=== PATIENT | male | born 1990 | race Caucasian/White ===

== ENCOUNTER 2017-06-16 17:34 | Emergency (ER) | payer BC, OTHER ==
[~2017-06-16] VITALS: Ht 172.7 cm; Wt 93.3 kg
[2017-06-16 17:39] VITALS: Ht 172.7 cm; Wt 93.3 kg
[2017-06-16] MEDS ORDERED: CEFTRIAXONE SOD INJ 1 GM ADDVIAL IV STA (17:51)
[2017-06-16 18:19] LABS: BASO % 0.2 %; BASO ABS # 0.02 K/uL (0-0.2); EOS ABS # 0.21 K/uL (0-0.5); HEMATOCRIT 40.3 % (42-52); HEMOGLOBIN 14.6 g/dL (14.0-18.0); IG# 0.02 K/uL (0.00-0.02); LYMPH % 20.7 %; LYMPH ABS # 2.22 K/uL (1.2-3.4); MEAN CELL VOLUME 84.5 fL (80-100); MEAN CORPUSCULAR HEMOGLOBIN 30.6 pg (25-34); MEAN CORPUSCULAR HGB CONC 36.2 g/dl (32-36); MONO % 7.9 %; MONO ABS # 0.85 K/uL (0.11-0.59); NEUT ABS # 7.43 K/uL (1.4-6.5); PLATELET COUNT 260 K/uL (130-400); RED CELL DISTRIBUTION WIDTH CV 12.4 % (11.5-14.5); WHITE BLOOD COUNT 10.75 K/uL (4.8-10.8)
[2017-06-16 18:43] LABS: CALCIUM 9.1 mg/dl (8.5-10.1); CREATININE 0.96 mg/dl (0.60-1.40); POTASSIUM 3.3 mmol/L (3.5-5.1)
[2017-06-16] MEDS ORDERED: SEPTRA DS HOME PACK 1 EA VIAL PO ONE (19:15)
[2017-06-16] MEDS ORDERED: CEPHALEXIN 500MG HOME PACK 1 EA BTL PO ONE (19:15)
[2017-06-16] MEDS ORDERED: SULF800T23 PO (19:24)
[2017-06-16] MEDS ORDERED: CEPH500C PO (19:24)
--- NOTE | 2017-06-16 19:25 | EMERGENCY ROOM VISIT NOTE ---
History First contact with patient: 17:43 Chief Complaint: FINGER PAIN Stated Complaint: INFECTED FINGER History of Present Illness The patient is a 27 year old male who presents to the Emergency Room with complaints of an infection of his left arm and finger. The patient states that he recently got 3 new tattoos a few weeks ago. He states that 2 days ago, he noticed some bumps on his left arm and hand. He states that today, there was redness and swelling surrounding a few of the bumps. He reports redness and swelling of the left hand and parts of the third and fourth fingers. He denies difficulty moving the hand or fevers. He states it is slightly painful. He describes the pain is dull and rates the discomfort a 2/10. Review of Systems A complete 10 point review of systems was reviewed with the patient with pertinent positives and negatives as per history of present illness. All else were negative. Past Medical/Surgical History Medical Problems: (1) Heroin overdose (2) Narcotic overdose Social History Smoking Status: Current Every Day Smoker Alcohol Use: occasionally Drug Use: heroin, marijuana Marital Status: single Occupation Status: employed Current/Historical Medications Scheduled Cephalexin Monohydrate (Keflex), 500 MG PO QID Sulfa/Trimethoprim (Bactrim Ds 800MG/160MG), 1 TAB PO BID Physical Exam Vital Signs Date Time Temp Pulse Resp B/P (MAP) Pulse Ox O2 Delivery O2 Flow Rate FiO2 06/16/17 19:35 37.4 74 18 148/83 98 06/16/17 18:49 79 18 140/71 99 Room Air 06/16/17 17:39 36.7 96 20 153/89 98 Room Air Physical Exam VITALS: Vitals are noted on the nurse's note and reviewed by myself. Vital signs stable. GENERAL: This is a 27-year-old male, in no acute distress, nondiaphoretic, well- developed well-nourished. SKIN: There is a small area of erythema and induration measuring 1.5 cm in diameter to the left dorsal proximal forearm. No drainage from this area. There is erythema to the dorsal aspect of the left hand over the lateral aspect of the hand and extending part way up the left third and fourth digits, not past the PIPs. There is a small vesicular lesion to the left fourth finger with some serous drainage. There is no palpable fluctuance. HEART: Regular rate and rhythm without murmurs gallops or rubs. LUNGS: Clear to auscultation bilaterally without wheezes, rales or rhonchi. MUSCULOSKELETAL: Full range of motion of the left hand and all fingers. NEURO: Patient was alert and oriented to person place and time. Distal sensation intact. Medical Decision & Procedures Laboratory Results 06/16/17 18:00 Red Blood Count 4.77, Mean Corpuscular Volume 84.5, Mean Corpuscular Hemoglobin 30.6, Mean Corpuscular Hemoglobin Concent 36.2, Mean Platelet Volume 9.0, Neutrophils (%) (Auto) 69.0, Lymphocytes (%) (Auto) 20.7, Monocytes (%) (Auto) 7.9, Eosinophils (%) (Auto) 2.0, Basophils (%) (Auto) 0.2, Neutrophils # (Auto) 7.43, Lymphocytes # (Auto) 2.22, Monocytes # (Auto) 0.85, Eosinophils # (Auto) 0.21, Basophils # (Auto) 0.02 06/16/17 18:00 Test 06/16/17 18:00 White Blood Count 10.75 K/uL (4.8-10.8) Red Blood Count 4.77 M/uL (4.7-6.1) Hemoglobin 14.6 g/dL (14.0-18.0) Hematocrit 40.3 % (42-52) Mean Corpuscular Volume 84.5 fL (80-100) Mean Corpuscular Hemoglobin 30.6 pg (25-34) Mean Corpuscular Hemoglobin Concent 36.2 g/dl (32-36) Platelet Count 260 K/uL (130-400) Mean Platelet Volume 9.0 fL (7.4-10.4) Neutrophils (%) (Auto) 69.0 % Lymphocytes (%) (Auto) 20.7 % Monocytes (%) (Auto) 7.9 % Eosinophils (%) (Auto) 2.0 % Basophils (%) (Auto) 0.2 % Neutrophils # (Auto) 7.43 K/uL (1.4-6.5) Lymphocytes # (Auto) 2.22 K/uL (1.2-3.4) Monocytes # (Auto) 0.85 K/uL (0.11-0.59) Eosinophils # (Auto) 0.21 K/uL (0-0.5) Basophils # (Auto) 0.02 K/uL (0-0.2) RDW Standard Deviation 38.0 fL (36.4-46.3) RDW Coefficient of Variation 12.4 % (11.5-14.5) Immature Granulocyte % (Auto) 0.2 % Immature Granulocyte # (Auto) 0.02 K/uL (0.00-0.02) Anion Gap 5.0 mmol/L (3-11) Est Creatinine Clear Calc Drug Dose 129.2 ml/min Estimated GFR () 125.9 Estimated GFR (Non- 108.7 BUN/Creatinine Ratio 11.8 (10-20) Calcium Level 9.1 mg/dl (8.5-10.1) Medications Administered Medications (Trade) Dose Ordered Sig/Rd Route Start Time Stop Time Status Last Admin Dose Admin Ceftriaxone Sodium (Rocephin Inj) 1 gm NOW STAT IV 06/16/17 17:51 06/16/17 17:52 DC 06/16/17 18:05 1 GM Cephalexin Monohydrate (Keflex 500MG Home Pack) 1 homepack NOW ONCE PO 06/16/17 19:15 06/16/17 19:20 DC 06/16/17 19:33 1 HOMEPACK Trimethoprim/ Sulfamethoxazole (Sulfameth/ Trimeth Ds 800/ 160MG Home Pack) 1 homepack UD ONCE PO 06/16/17 19:15 06/16/17 19:20 DC 06/16/17 19:33 1 HOMEPACK Medical Decision Differential diagnosis includes cellulitis, abscess, contact dermatitis, among others. The patient was evaluated as above. He appears to have a cellulitis to the left hand and to a lesser extent, the left proximal forearm. There was a small vesicular appearing lesion with serous drainage which was cultured. Labs showed no leukocytosis or anemia. Patient was given a dose of IV Rocephin and advised to return in 24-48 hours for a recheck. He was advised to return sooner for worsening redness, swelling, or fevers. He verbalized understanding of my assessment and treatment plan and was discharged home in good condition. Medication Reconcilliation Current Medication List: was personally reviewed by me Blood Pressure Screening Patient's blood pressure: Elevated blood pressure Blood pressure disposition: Elevated BP felt to be situational Impression Primary Impression: Cellulitis of left hand Departure Information Dispostion Home / Self-Care Condition GOOD Prescriptions Sulfa/Trimethoprim (Bactrim Ds 800MG/160MG) Tab 1 TAB PO BID for 10 Days, #20 TAB Prov: Mela Vegas PA-C 06/16/17 Cephalexin Monohydrate (Keflex) 500 Mg Cap 500 MG PO QID for 10 Days, #40 CAP Prov: Mela Vegas PA-C 06/16/17 Referrals No Doctor, Assigned (PCP) Patient Instructions My [facility] Additional Instructions You were prescribed Keflex to be taken 4 times daily as prescribed. This is an antibiotic. All antibiotics have the potential to cause diarrhea. Stop this medication and contact a medical provider if you were to develop any significant adverse side effects including: wheezing, shortness of breath, passing out, vomiting, or a diffuse rash. Always take antibiotics as directed and COMPLETE the ENTIRE course regardless of the improvement of your symptoms. You were prescribed Bactrim to be taken twice daily as prescribed. This is an antibiotic. All antibiotics have the potential to cause diarrhea. Stop this medication and contact a medical provider if you were to develop any significant adverse side effects including: wheezing, shortness of breath, passing out, vomiting, or a diffuse rash. Always take antibiotics as directed and COMPLETE the ENTIRE course regardless of the improvement of your symptoms. For pain control, you can use the following [id number] medicines (if >12 yo): - Regular strength (325mg/tab) Tylenol (acetaminophen) 2 tabs every 4-6 hours as needed. Do not exceed 12 tablets in a 24 hour period. Avoid taking more than 4 grams (4000 mg) of Tylenol per day. This includes any other sources of acetaminophen you may take on a regular basis. - Regular strength (200 mg/tab) Advil (ibuprofen) 1-2 tabs every 4-6 hours as needed. Do not exceed a dose of 3200 mg per day. Return here in 24-48 hours for a recheck. Return to the emergency department with worsening redness/swelling, fevers, red streaking up her arm or any other new/concerning symptoms.
[2017-06-16 19:35] VITALS: BP 148/83; PULSE 74; TEMP 37.4; O2SAT 98
--- NOTE | 2017-06-18 14:38 | Pharmacy Progress Note ---
ED Pharmacist Culture FollowUp Date of Service: Jun 18, 2017. Patient with MSSA growing on surface wound culture, discharged on bactrim and keflex. Per Dr. Meyer continue current therapy. I did attempt to call patient and inform him of result, but was unsuccessful and was unable to leave a voicemail.
== END 2017-06-16 19:35 | disposition home or self-care (01) ==
LOC: C.EDB 17:35 → C.EDC 19:35
DX: L03.114 Cellulitis of left upper limb (principal); F17.200 Nicotine dependence, unspecified, uncomplicated

== ENCOUNTER 2019-09-07 23:46 | Inpatient (IN) ==
[2019-09-08] MEDS ORDERED: LORazepam 1 MG TAB PO STA (00:18)
[2019-09-08 00:40] LABS: Appearance Urine Clear (Clear); Bacteria Urine Automated Negative (Negative); Bilirubin Urine Negative (Negative); Blood Urine Negative (Negative); Color Urine Dark Yellow; Glucose Urine UA Negative (Negative); Ketones Urine 1+ (Negative); Leukocyte Esterase Urine Trace (Negative); Nitrite Urine Negative (Negative); Protein Urine Negative (Negative); RBC Urine Automated 0-4 /hpf (0-4); Specific Gravity Urine 1.033 (1.000-1.030); Urobilinogen Urine Negative (Negative); pH Urine 5.5 (4.5-7.5)
[2019-09-08 00:42] LABS: Basophils # (auto) 0.03 K/uL (0-0.2); Basophils % (auto) 0.2 %; Eosinophils # (auto) 0.31 K/uL (0-0.5); Eosinophils % (auto) 2.5 %; Hematocrit (blood only) 43.9 % (42-52); Hemoglobin 16.1 g/dL (14.0-18.0); Immature Granulocytes # (auto) 0.03 K/uL (0.00-0.02); Immature Granulocytes % (auto) 0.2 %; Lymphocytes # (auto) 2.08 K/uL (1.2-3.4); Mean Corpuscular Hemoglobin 30.8 pg (25-34); Mean Corpuscular Hgb Conc 36.7 g/dL (32-36); Mean Corpuscular Volume 84.1 fL (80-100); Mean Platelet Volume 8.9 fL (7.4-10.4); Monocytes # (auto) 1.03 K/uL (0.11-0.59); Monocytes % (auto) 8.4 %; Neutrophils # (auto) 8.72 K/uL (1.4-6.5); Neutrophils % (auto) 71.7 %; Platelet Count 261 K/uL (130-400); RDW Coefficient of Variation 12.8 % (11.5-14.5); RDW Standard Deviation 38.5 fL (36.4-46.3); Red Blood Count 5.22 M/uL (4.7-6.1)
[2019-09-08 00:54] LABS: INR 1.1 (0.9-1.1); Partial Thromboplastin Ratio 1.2; Partial Thromboplastin Time 32.8 Seconds (21.0-31.0); Prothrombin Time 11.9 Seconds (9.0-12.0)
[2019-09-08 01:00] LABS: Albumin Level 4.1 gm/dl (3.4-5.0); BUN Creatinine Ratio 13.4 (10-20); Blood Urea Nitrogen 20 mg/dl (7-18); Calcium 9.6 mg/dl (8.5-10.1); Carbon Dioxide 22 mmol/L (21-32); Chloride 108 mmol/L (98-107); Creatinine Clr Calc Pharmacy 79.5 ml/min; Est GFR (African American) 70.7; Glucose 106 mg/dl (70-99); Magnesium 2.2 mg/dl (1.8-2.4); Potassium 3.2 mmol/L (3.5-5.1); Sodium 141 mmol/L (136-145)
[2019-09-08 01:03] LABS: Amphetamines+Metham, Urine Pos (Neg); Barbiturates, Urine Neg (Neg); Benzodiazepine, Urine Neg (Neg); Cocaine, Urine Pos (Neg); MDMA (Ecstacy), Urine Pos (Neg); Methadone, Urine Neg (Neg); Opiate, Urine Neg (Neg); Phencyclidine, Urine Neg (Neg)
[2019-09-08 01:11] LABS: Alanine Aminotransferase 25 U/L (12-78); Albumin Globulin Ratio 1.1 (0.9-2); Alkaline Phosphatase 73 U/L (45-117); Aspartate Aminotransferase 20 U/L (15-37); Bilirubin,Total 0.9 mg/dl (0.2-1); Globulin 3.9 gm/dl (2.5-4.0); Troponin I < 0.015 ng/ml (0-0.045)
[2019-09-08 01:18] LABS: Acetaminophen < 2 ug/ml (10-30); Salicylate < 1.7 mg/dl (2.8-20)
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
[2019-09-08] MEDS ORDERED: MAGNESIUM HYDROXIDE SUSP 30 ML UDC PO PRN (04:24)
[2019-09-08] MEDS ORDERED: ALUMINUM/MAGNESIUM SUSP 30 ML UDC PO PRN (04:24)
[2019-09-08] MEDS ORDERED: BISMUTH SUBSALICYLATE PER ML OMNICELL CHARGE PO PRN (04:24)
[2019-09-08] MEDS ORDERED: ACETAMINOPHEN 325 MG TAB PO PRN (04:24)
[2019-09-08] MEDS ORDERED: LORazepam 1 MG TAB PO PRN ×2 (04:24→10:24)
[2019-09-08] MEDS ORDERED: SODIUM CHLORIDE 0.65% NA SOLN 45 ML (OCEAN) PRN (04:24)
--- NOTE | 2019-09-08 06:56 | CT Scan Report ---
CT head/brain wo con CLINICAL HISTORY: Acute change in mental status COMPARISON STUDY: 10/06/2012 TECHNIQUE: Axial CT of the brain is performed from the vertex to the skull base. IV contrast was not administered for this examination. A dose lowering technique was utilized adhering to the principles of ALARA. CT DOSE: 729.78 mGycm FINDINGS: No intra or extra-axial mass lesions are visualized. There is no CT evidence of acute cortical infarc tion. There is no evidence of midline shift. There is no acute hemorrhage. No calvarial fractures ar e visualized. There is a cavum of septum pellucidum. There is no evidence of pathologic ventricular dilatation. There is no evidence of acute sinusitis IMPRESSION: Normal noncontrast head CT. ACT 112: Negative or not required by law. Electronically signed by: Ari Fernández M.D. 09/08/2019 6:55 AM
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
[2019-09-08] MEDS ORDERED: BENZTROPINE MESYLATE 1 MG TAB PO PRN (10:24)
[2019-09-08] MEDS ORDERED: haloperidoL 5 MG TAB PO PRN (10:24)
--- NOTE | 2019-09-08 15:22 | Communication Note ---
Date of Service: September 08, 2019 Records from [facility] - Dr. Marisol DO - Received and Reviewed: Diagnoses: Opioid abuse, uncomplicated; anxiety disorder, unspecified Medication: resumed buspirone 5mg BID Telephone visit on 08/17/2019: - Pt reported complaints of mood lability, agoraphobia, and insomnia. Pt reportedly requested refill of buspirone. It is documented that the patient may be interested in medical marijuana in the near future "but not now." It is documented that patient was advised that referral to psychiatry may be indicated "depending on need for additional therapies, including medications, to manage his condition. Follow-up recommended in 3 months.
--- NOTE | 2019-09-08 19:19 | Electrocardiogram Report ---
Test Reason : Blood Pressure : / mmHG Vent. Rate : 112 BPM Atrial Rate : 112 BPM P-R Int : 128 ms QRS Dur : 086 ms QT Int : 318 ms P-R-T Axes : 043 004 035 degrees QTc Int : 434 ms Sinus tachycardia Nonspecific ST abnormality Abnormal ECG When compared with ECG of 12-FEB-2016 19:55, Vent. rate has increased BY 42 BPM T wave inversion no longer evident in Inferior leads T wave amplitude has increased in Anterior leads Confirmed by Luis Rey ([id number] on 09/08/2019 7:19:16 PM Referred By: REFERRED SELF Confirmed By:Chapincito Rey
[2019-09-08] MEDS ORDERED: cloNIDine HCL 0.1 MG TAB PO ONE (19:43)
[2019-09-08] MEDS ORDERED: cloNIDine HCL 0.1 MG TAB PO PRN (21:34)
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
[2019-09-12 06:59] LABS: Amphetamine Urine, Confirm 5150 ng/mL (<250); Cocaine, Urine >15000 ng/mL (<100); MDA negative; MDEA negative; MDMA (Ecstasy) Urine, Confirm negative; Marijuana Quant, GCMS Urine 30 ng/mL (<5); Methamphetamine, Ur Confirm >15000 ng/mL (<250)
--- NOTE | 2019-09-15 13:03 | Coding Query ---
CODING QUERY To promote full compliance with coding requirements relating to patient care, provider participation is requested in all cases of pyridine recovery operator uncertainty. Please assist us with the question(s) below: Coding Question(s): Both drug abuse and drug use are documented. Can you please clarify below the correct diagnoses for each drug along with the etiology of the patient's mood disorder and psychosis? Thank you. Physician's Response(s): METHAMPHETAMINE ( ) Use, without complications ( ) Use, with mood disorder ( ) Use, with psychosis ( ) Abuse, without complications ( ) Abuse, with mood disorder ( x ) Abuse, with psychosis COCAINE ( ) Use, without complications ( ) Use, with mood disorder ( ) Use, with psychosis ( ) Abuse, without complications ( ) Abuse, with mood disorder ( x ) Abuse, with psychosis HEROIN ( ) Use, without complications ( ) Use, with mood disorder ( ) Use, with psychosis ( x ) Abuse, without complications ( ) Abuse, with mood disorder ( ) Abuse, with psychosis CANNABIS ( ) Use, without complications ( ) Use, with psychosis ( ) Abuse, without complications (x ) Abuse, with psychosis ALCOHOL ( ) Use, without complications (x ) Abuse, without complications ( ) Abuse, with mood disorder ( ) Abuse, with psychosis Thank you Alla Calderon Principal Diagnosis: "that condition established after study, to be chiefly responsible for occasioning the admission of the patient to the hospital for care." Co-Existing Principal Diagnosis: "when two or more diagnoses equally meet the criteria for principal diagnosis as determined by the circumstances of admission, diagnostic work up, and/or therapy provided, and the Alphabetic Index, Tabular List, or another coding guideline does not provide sequencing direction, any one of the diagnoses may be sequenced first." "When the physician has documented what appears to be a current diagnosis in the body of the record, but has not included the diagnosis in the final diagnostic statement, the physician should be asked whether the diagnosis should be added." (Source Coding [facility] 2 QTR90. p3-4) DELIA
== END 2019-09-09 10:28 | disposition left against medical advice (07) | DRG 894 ==
LOC: ED 23:46 → 3S 09-08 03:52